=== PATIENT | female | born 1945 | race Caucasian/White ===

== ENCOUNTER 2020-02-14 18:07 | Outpatient (CLI) | payer MEDICARE, SELFPAY ==
--- NOTE | ~2020-02-14 | CT_ITS ---
EXAMINATION: CT chest wo con EXAM DATE: 02/14/2020 18:24 INDICATION: Chronic obstructive pulmonary disease. TECHNIQUE: Spiral CT of the chest without contrast. Axial, coronal and sagittal images were reviewe d. Coronal maximum intensity pixel images of chest reviewed. The dose-length product (DLP) for this examination was 286.27 mGy-cm. The exposure was tailored according to patient size (auto mA exposur e control), and iterative reconstruction (ASIR) was used as additional dose reduction technique. Comp arison is made to prior examination from 05/17/2019. FINDINGS: Right upper lobe elongated nodule is stable in size, main component measuring 1.6 x 0.8 cm . This is consistent with postinfectious residua. There is mild emphysema and hyperinflation. No new or suspicious pulmonary nodules. Left shoulder replacement. There are no pleural or pericardial effus ions. Tracheobronchial tree is patent. There is no mediastinal, hilar or axillary lymphadenopathy . There is no pneumothorax. Heart normal in size. There is mild to moderate coronary arterial c alcification, arterial sclerosis. Upper abdomen is unremarkable. There is moderate thoracic spondy losis without osteoblastic or osteolytic lesions identified. IMPRESSION: 1. Postinfectious residua. 2. Mild emphysema and hyperinflation. Reviewed, dictated and finalized at location A.
== END 2020-02-14 18:08 | disposition home or self-care (01) ==
PROVIDERS: PCP Family Medicine; Visit Provider Nurse Practitioner Family
DX: J44.9 Chronic obstructive pulmonary disease, unspecified (principal)
CPT/HCPCS: 71250

== ENCOUNTER 2020-08-20 11:50 | Outpatient (CLI) | payer MEDICARE, SELFPAY ==
--- NOTE | ~2020-08-20 | MM_ITS ---
EXAMINATION: MM screening [facility] BI w tony HISTORY: Screening mammogram, history of left breast cancer TECHNIQUE: Craniocaudal and mediolateral oblique 3-D tomosynthesis images were obtained and synthetic 2-D images were generated. CAD analysis was submitted and interpreted. COMPARISON: 11/14/2018, 09/02/2017, 08/09/2016 BREAST PARENCHYMAL COMPOSITION: The breasts are almost entirely fatty. FINDINGS: There are stable lumpectomy changes in the upper outer quadrant of the left breast. There i s no evidence of suspicious mass, calcification, or architectural distortion to suggest malignancy in either breast. There has been no suspicious interval change. IMPRESSION: 1. No mammographic evidence of malignancy. 2. Recommend routine screening mammography in one year. BI-RADS Category 2: Benign finding(s). Reviewed, dictated and finalized at location D.
== END 2020-08-20 11:51 | disposition home or self-care (01) ==
PROVIDERS: PCP Physician Assistant; Visit Provider Obstetrics & Gynecology
DX: Z12.31 Encounter for screening mammogram for malignant neoplasm of breast (principal)
CPT/HCPCS: 77063; 77067

== ENCOUNTER 2020-09-24 14:30 | Outpatient (RCR) | payer MEDICARE, SELFPAY ==
[2020-09-11 14:12] VITALS: BMI 36.5
[2020-09-11 14:16] VITALS: BMI 36.5
== END 2020-11-12 14:57 | disposition home or self-care (01) ==
LOC: ANHDMC 14:30
PROVIDERS: PCP Physician Assistant; Visit Provider Physician Assistant
DX: E11.65 Type 2 diabetes mellitus with hyperglycemia (principal); E66.01 Morbid (severe) obesity due to excess calories; Z68.38 Body mass index [BMI] 38.0-38.9, adult; Z71.89 Other specified counseling; Z71.3 Dietary counseling and surveillance
CPT/HCPCS: 97802; G0108; G0109

== ENCOUNTER 2020-12-25 14:06 | Outpatient (RCR) | payer MEDICARE, SELFPAY | END 2020-12-26 12:01 | disposition home or self-care (01) | LOC: ANHDMC 14:06 | PROVIDERS: PCP Family Medicine; Visit Provider Physician Assistant | DX: E11.65 Type 2 diabetes mellitus with hyperglycemia (principal); E66.01 Morbid (severe) obesity due to excess calories; Z68.38 Body mass index [BMI] 38.0-38.9, adult; Z71.89 Other specified counseling | CPT/HCPCS: G0108 ==

== ENCOUNTER 2021-03-31 15:03 | Emergency (ER) | payer MEDICARE, SELFPAY ==
--- NOTE | ~2021-03-31 | XR_ITS ---
EXAMINATION: XR chest 2V EXAM DATE: 03/31/2021 15:29 INDICATION: Cough and shortness of breath. Hx of HTN, breast CA. TECHNIQUE: Frontal and lateral projections of the chest obtained and reviewed. Comparison is made to prior examination from 04/09/2019. FINDINGS: Chronic right pleural blunting. Chronic linear right perihilar scarring. The lungs are oth erwise clear. Cardiomediastinal silhouette is normal. There is no pneumothorax suspected. No sizable pleural effusion. Left shoulder replacement hardware. There is aortic arteriosclerosis. IMPRESSION: 1. No acute cardiac pulmonary findings. Reviewed, dictated and finalized at location A. [employer]PA[employer]
--- NOTE | 2021-03-31 15:07 | ED.URI ---
HPI - URI/Sore Throat General Chief Complaint: Upper Respiratory Infection Stated Complaint: congestion/cough/sob/asthma Time Seen by Provider: 03/31/21 15:07 Source: patient, RN notes reviewed and old records reviewed Mode of arrival: ambulatory Limitations: no limitations History of Present Illness HPI Narrative: 76-year-old female presents to the [facility] with complaints of congestion, cough, shortness of breath and asthma-like feeling. States been going on for several days. Has tried using her nebulizer treatment one time. Denies chest pain or abdominal pain. No fevers. MD elicited complaint: cough Related Data Home Medications Medication Instructions Recorded Confirmed anastrozole 1 mg tablet 1 mg PO DAILY 06/07/19 11/26/20 aspirin 81 mg tablet,delayed 81 mg PO DAILY 05/14/20 11/26/20 release calcium pantothenate 500 mg tablet mg PO 05/14/20 11/26/20 multivit with 1 tablet PO DAILY 05/14/20 11/26/20 oylsxnut-idbh-BH-lutein 8 mg iron-400 mcg-300 mcg tablet ipratropium 0.5 mg-albuterol 3 mg 3 ml INHALATION Q6H PRN 11/26/20 11/26/20 (2.5 mg base)/3 mL nebulization soln Allergies Allergy/AdvReac Type Severity Reaction Status Date / Time No Known Allergies Allergy Unknown Verified 11/26/20 14:15 Review of Systems Review of Systems: All systems reviewed & are unremarkable except as noted in HPI and below Constitutional: Constitutional: Reports no additional constitutional complaints, Denies chills and Denies fever(s) Eyes: Eyes: Reports no additional eye complaints ENT: Reports system reviewed and no additional complaints, except as documented Cardiovascular: Cardiovascular: Reports no additional cardiovascular complaints and Denies chest pain Respiratory: Respiratory: Reports as per HPI, Reports cough, Reports dyspnea and Reports wheezing Gastrointestinal: Gastrointestinal: Reports no additional gastrointestinal complaints, Denies abdominal pain, Denies nausea and Denies vomiting Musculoskeletal: Musculoskeletal: Reports no additional musculoskeletal complaints Integumentary/Breasts: Skin/Breast: Reports system reviewed and no additional complaints, except as docu Neurologic: Reports system reviewed and no additional complaints, except as documented Psychiatric: Psychiatric: Reports no additional psychiatric complaints Allergic/Immunologic: Allergic/Immunologic: Reports no additional allergic/immunologic complaints PMFSH Past Medical History Medical History Arthritis Arthritis of knee, right Benign hypertension Breast cancer Chondromalacia of right patellofemoral joint Class 2 obesity with body mass index (BMI) of 38.0 to 38.9 in adult Diabetes Dysuria (08/28/18) Essential (primary) hypertension History of breast cancer History of vaginal delivery x 2 Hyperlipidemia Obstructive sleep apnea Osteoporosis Type 2 diabetes mellitus Urinary frequency Vertigo Wears glasses Surgical History Surgical History History of lung surgery 2014-Dicortication Dr. Salmon History of rotator cuff surgery History of tubal ligation Status post right breast lumpectomy Family History Family History Father Diabetes mellitus Sibling Diabetes mellitus Mother Hypertension Patient's mother is Other Family history of arthritis Social History Social History Smoking status: Never smoker Second hand tobacco smoke exposure: No Alcohol intake: current Drinks per week: 1 Alcohol use details: wine Substance use: never Substance use type: does not use Gender identity (if verbalized by the patient): Female Spiritual care concerns: No Comments At the time of my signature, I reviewed and agree with the nursing past medical, surgical, social, and family history
[2021-03-31 15:13] VITALS: BP 166/87; PULSE 92; RESP 16; TEMP 35.7; O2SAT 99
[2021-03-31] MEDS: ALBUTEROL SULFATE NEB 2.5 MG/3 ML INH INHALATION (15:25)
[2021-03-31] MEDS: IPRATROPIUM BR 0.02% INH SOLN 0.5 MG/2.5 ML VIAL INHALATION (15:25)
[2021-03-31 15:42] VITALS: PULSE 92; RESP 24; O2SAT 100
== END 2021-03-31 16:00 | disposition home or self-care (01) ==
PROVIDERS: Emergency Provider Nurse Practitioner; PCP Family Medicine
DX: J20.9 Acute bronchitis, unspecified (principal); M17.11 Unilateral primary osteoarthritis, right knee; I10 Essential (primary) hypertension; Z85.3 Personal history of malignant neoplasm of breast; E11.9 Type 2 diabetes mellitus without complications; E78.5 Hyperlipidemia, unspecified; M81.0 Age-related osteoporosis without current pathological fracture
CPT/HCPCS: 71046; 94640; 99213; G0463

== ENCOUNTER 2021-10-08 14:53 | Outpatient (CLI) | payer MEDICARE, SELFPAY ==
--- NOTE | ~2021-10-08 | MM_ITS ---
EXAMINATION: MM screening [facility] BI w tony HISTORY: Screening mammogram, history of left breast cancer TECHNIQUE: Craniocaudal and mediolateral oblique 3-D tomosynthesis images were obtained and synthetic 2-D images were generated. CAD analysis was submitted and interpreted. COMPARISON: 08/20/2020, 11/15/2018, 09/02/2017 BREAST PARENCHYMAL COMPOSITION: There are scattered areas of fibroglandular density. FINDINGS: Stable lumpectomy changes are again noted in the upper outer quadrant of the left breast. T here is no suspicious mass, calcification, or architectural distortion to suggest malignancy in eithe r breast. There has been no suspicious interval change. IMPRESSION: 1. No mammographic evidence of malignancy. 2. Recommend routine screening mammography in one year. BI-RADS Category 2: Benign finding(s). Reviewed, dictated and finalized at location A.
== END 2021-10-08 14:54 | disposition home or self-care (01) ==
PROVIDERS: PCP Family Medicine; Visit Provider Internal Medicine
DX: Z12.31 Encounter for screening mammogram for malignant neoplasm of breast (principal)
CPT/HCPCS: 77063; 77067

== ENCOUNTER 2022-02-12 09:16 | Outpatient (CLI) | payer MEDICARE, SELFPAY ==
--- NOTE | ~2022-02-12 | XR_ITS ---
XR chest 2V 02/12/2022 09:38 Indication: Left-sided chest pain Procedure: 2 view chest Comparison: Comparison to multiple prior studies sequentially, with oldest reviewed study dated 09/14. Findings: The there is right perihilar scarring. There is blunting of the right lateral costophrenic recess which is chronic which may represent a small effusion versus pleural thickening. Left lung yana ar. There is a left shoulder arthroplasty. Impression: 1: Small right pleural effusion versus pleural thickening. Reviewed, dictated and finalized at location A. Impression: 1: Small right pleural effusion versus pleural thickening.
--- NOTE | ~2022-02-12 | NM_ITS ---
EXAMINATION: NM marsha stress w perfusion DATE: 02/12/2022 12:36 INDICATION: Chest pain TECHNIQUE: Rest images were obtained following intravenous administration of 11 mCi Tc99m tetrofosmin (Myoview). The patient was infused intravenously with Lexiscan (Regadenoson). Then, 33 mCi Tc99m tet rofosmin (Myoview) was administered intravenously, and stress images were obtained in supine position . Additional post stress images were obtained in prone position. Data was reconstructed into short ax is and horizontal and vertical long axis SPECT images. Gated SPECT images were also obtained. COMPARISON: None. FINDINGS: There is some diaphragmatic attenuation artifact along the inferior wall on the supine imaging which normalizes with prone imaging. There is no definite reversible or fixed perfusion abnormality to sugg est ischemia or infarction. There is normal left ventricular chamber size, wall motion and ejection fraction. Left ventricular ejection fraction measures 70%. IMPRESSION: 1. Normal myocardial perfusion at rest and during stress. 2. Left ventricular ejection fraction measuring 70%. Reviewed, dictated and finalized at location B.
--- NOTE | 2022-02-12 08:52 | EST_ITS ---
Patient Info Name: Khushbu Cunningham Age: 76 years : 1945 Gender: Female Ht: 63 in Wt: 205 lbs BSA: 2.08 m2 HR: 75 bpm BP: 157 / 67 mmHg Heart Rhythm: Sinus Rhythm Exam Date: 02/12/2022 10:52 AM Exam Location: [facility] Stress Patient Status: Outpatient Admit Date: 02/12/2022 Staff Ordering Physician: Sunday Yang APRN Attending Provider: Sunday Yang APRN Referring Physician: Tracee Dimas; Exercise Technologist: Reanna Zhou CT Nurse: SANJAY MAYNARD Exam Type: CA stress marsha w NM Study Info Indications R06.02 - Shortness of breath A regadenoson stress test was performed. Summary 1. Sinus rhythm with borderline leftward axis deviation. 2. No ST or T-wave abnormalities noted following Lexiscan injection. 3. Clinically and electrocardiographically unremarkable Lexiscan stress test. 4. Myocardial perfusion imaging study to be reported by Radiology. Protocol: Lexiscan Stress ECG Details Stage: REST Duration (min): 0 min : 55 sec HR (bpm): 74 SBP (mmHg): 157 DBP (mmHg): 67 Stage: REST Duration (min): 7 min : 53 sec HR (bpm): 72 SBP (mmHg): 157 DBP (mmHg): 67 Stage: STAGE 1 Duration (min): 0 min : 59 sec HR (bpm): 90 SBP (mmHg): 153 DBP (mmHg): 69 Stage: RECOVERY Duration (min): 1 min : 0 sec HR (bpm): 89 SBP (mmHg): 153 DBP (mmHg): 69 Stage: RECOVERY Duration (min): 2 min : 0 sec HR (bpm): 84 SBP (mmHg): 153 DBP (mmHg): 69 Stage: RECOVERY Duration (min): 3 min : 0 sec HR (bpm): 83 SBP (mmHg): 171 DBP (mmHg): 69 Stage: RECOVERY Duration (min): 3 min : 43 sec HR (bpm): 81 SBP (mmHg): 171 DBP (mmHg): 69 Rest HR: 72 bpm Peak HR: 94 bpm Rest Sys BP: 157 mmHg Peak Sys BP: 171 mmHg Max Pred HR: 143 bpm % Max Pred HR: 66 % Target HR: 122 bpm Max RPP: 16,074 bpm*mmHg Total Time: 1 min : 0 sec Rest Roberts BP: 67 mmHg Peak Roberts BP: 69 mmHg Total Dose: 0.4 mg Resting ECG Sinus rhythm with borderline leftward axis deviation. Stress ECG No ST or T-wave abnormalities noted following Lexiscan injection. Report Signatures
== END 2022-02-12 09:17 | disposition home or self-care (01) ==
LOC: ANHCARD 09:19
PROVIDERS: PCP Family Medicine; Referring Provider Physician Assistant Medical; Visit Provider Nurse Practitioner Family
DX: R06.02 Shortness of breath (principal); J90 Pleural effusion, not elsewhere classified; R07.89 Other chest pain
CPT/HCPCS: 71046; 78452; 93017; A9502; J0280; J2785

== ENCOUNTER 2022-06-02 09:49 | Outpatient (CLI) | payer MEDICARE, SELFPAY ==
--- NOTE | ~2022-06-02 | DEXA_ITS ---
Bone Density Report Name: KARINE GONZALEZ Age: 77 Sex: Female Ethnicity: White Date of : 1945 Indication: postmenopausal; screening for osteoporosis; height loss; cancer; secondary osteoporosis; Referring Provider: LEEANNE JORDAN Study: Bone densitometry was performed. Exam Date: June 02, 2022 Accession number: [id number] Bone Density: Region BMD T-score Z-score Classification AP Spine(L2, L3, L4) 1.221 1.3 4.0 Normal Femoral Neck (Right) 0.737 -1.0 1.2 Normal Total Hip (Right) 1.025 0.7 2.6 Normal World Health Organization criteria for BMD impression classify patients as: Normal (T-score at or above -1.0), Osteopenia (T-score between -1.0 and -2.5), or Osteoporosis (T-score at or below -2.5). 10-year Fracture Risk: FRAX not reported because: All T-scores for Spine Total, Hip Total, Femoral Neck at or above -1.0 Clinical Information Provided by Patient: Has secondary osteoporosis Has used the following medications: Vitamin D, Calcium Has the following medical conditions: Cancer Patient maximum height was 64 Menopause Age: 53 Does not regularly consume dairy products Drinks caffeinated beverages Onset of menses at age 13 Number of children 2 Impression: The patient has normal bone mass. Discussion: BONE DENSITY IS ABOVE THE MINIMUM DESIRABLE LEVEL AT ALL SKELETAL SITES TESTED. This patient?s bone mineral density is above the minimum desirable level (T-score -1.0 or better) at all sites measured. The patient should follow a healthful lifestyle (good nutrition with adequate calcium and vitamin D, and appropriate weight-bearing exercise). Follow-Up: Consider repeating this study in 5 years or sooner if there is some new clinical indication. Reported by: BRANDY on 06/02/2022 11:17:00 AM. Reviewed, dictated and finalized at location AGabrielle REYES
== END 2022-06-02 09:50 | disposition home or self-care (01) ==
LOC: ANHIMG 09:50
PROVIDERS: PCP Family Medicine; Visit Provider Obstetrics & Gynecology
DX: Z78.0 Asymptomatic menopausal state (principal)
CPT/HCPCS: 77080

== ENCOUNTER 2023-03-29 10:17 | Emergency (ER) | payer MEDICARE, SELFPAY ==
--- NOTE | ~2023-03-29 | XR_ITS ---
Clinical Indication: Congestion PA and lateral views of the chest: Comparison: 02/12/2022 Findings: Possible minimal right pleural effusion. Lungs are otherwise clear. Cardiomediastinal silh ouette is within normal limits. Left shoulder arthroplasty unchanged. Impression: Possible minimal right pleural effusion. Reviewed, dictated and finalized at [facility]. MAKER Impression: Possible minimal right pleural effusion.
--- NOTE | 2023-03-29 10:30 | ED.URI ---
HPI - URI/Sore Throat General Chief Complaint: Upper Respiratory Infection Stated Complaint: SOB/CONGESTION/NOT SLEEPING Time Seen by Provider: 03/29/23 10:33 Source: patient Mode of arrival: ambulatory Limitations: no limitations History of Present Illness HPI Narrative: 78-year-old female with hx COPD/asthma presented for c/o shortness of breath for 3 days with nasal congestion. Also reports occasional wheezing which she says is unusual for her. Not sleeping well due to the sinus congestion and use of cpap. She denies cough, chest pain, palpitations, nausea vomiting, diarrhea, fevers or chills. Denies dizziness worse from baseline. Takes AirDuo, and uses DuoNebs occasionally but has not used them since symptoms started. Follows with pulm. Scheduled with pcp in 2 days. Related Data Home Medications Medication Instructions Recorded Confirmed aspirin 81 mg tablet,delayed 81 mg PO DAILY 05/14/20 03/04/23 release (Adult Aspirin Regimen) calcium pantothenate 500 mg tablet mg PO 05/14/20 03/04/23 ghvfzaqc-pjsb-pgrj 8 mg-folic 400 1 tablet PO DAILY 05/14/20 03/04/23 mcg-K 50 mcg-lutein 300 mcg tablet (Centrum Silver Women) ipratropium 0.5 mg-albuterol 3 mg 3 ml inhalation Q6H PRN 11/26/20 03/04/23 (2.5 mg base)/3 mL nebulization soln insulin human U-100 NPH-regulr 30 unit subcut BID 07/22/21 03/04/23 70-30 mix 100 unit/mL subcutaneous susp (Novolin 70/30 U-100 Insulin) Allergies Allergy/AdvReac Type Severity Reaction Status Date / Time No Known Allergies Allergy Unknown Verified 03/29/23 10:28 Review of Systems Review of Systems: CONSTITUTIONAL: Denies body aches, fever, chills, or sweats. EYES: Denies visual changes, redness, or discharge. ENT: Denies rhinorrhea, congestion, sore throat, or otalgia. CARDIOVASCULAR: Denies chest pain, palpitations, or edema. RESPIRATORY: Reports sob, wheezing. GASTROINTESTINAL: Denies abdominal pain, nausea, vomiting, or diarrhea. GENITOURINARY: Denies dysuria or hematuria. SKIN: Denies rash, itching, or wounds. MUSCULOSKELETAL: Denies back pain, joint pain, or myalgia. NEUROLOGIC: Denies headache, numbness, tingling, or weakness. All systems reviewed & are unremarkable except as noted in HPI and below PMFSH Past Medical History Medical History Arthritis Asthma Benign hypertension Breast cancer Chest pain Chondromalacia of right patellofemoral joint Class 2 obesity with body mass index (BMI) of 38.0 to 38.9 in adult Colon cancer screening Cologuard negative, Fall 2020, done with PROBATION OFFICER ([facility]) COPD (chronic obstructive pulmonary disease) COPD exacerbation Diabetes Dysuria (08/28/18) Essential (primary) hypertension History of breast cancer History of vaginal delivery x 2 Left knee DJD Obstructive sleep apnea Osteoporosis Patellofemoral arthritis Type 2 diabetes mellitus Urinary frequency Vertigo Wears glasses Surgical History Surgical History History of hip surgery L hip surgery History of lung surgery 2013-Dicortication Dr. 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 POA: BrotherHong. Has living will. Smoking status: Never smoker Second hand tobacco smoke exposure: No Alcohol intake: current Drinks per week: 1 Alcohol use details: wine Substance use: never Substance use type: does not use Lack of Transportation: No Lack of Food: Never True Current Housing: I Have
[2023-03-29 10:35] VITALS: BP 156/78; PULSE 76; RESP 16; TEMP 35.8; O2SAT 100
== END 2023-03-29 11:12 | disposition home or self-care (01) ==
PROVIDERS: Emergency Provider Nurse Practitioner Family; PCP Family Medicine
DX: B34.9 Viral infection, unspecified (principal); Z20.822 Contact with and (suspected) exposure to COVID-19; M19.90 Unspecified osteoarthritis, unspecified site; I10 Essential (primary) hypertension; J44.9 Chronic obstructive pulmonary disease, unspecified; E11.9 Type 2 diabetes mellitus without complications; M17.12 Unilateral primary osteoarthritis, left knee; M81.0 Age-related osteoporosis without current pathological fracture; Z85.3 Personal history of malignant neoplasm of breast; Z79.82 Long term (current) use of aspirin
CPT/HCPCS: 71046; 87426; 87804; 99213; C9803; G0463

== ENCOUNTER 2023-05-30 09:02 | Outpatient (CLI) | payer MEDICARE, SELFPAY | END 2023-05-30 09:03 | disposition home or self-care (01) | LOC: ANHAUDIO 09:03 | PROVIDERS: PCP Family Medicine; Visit Provider Otolaryngology | DX: H90.3 Sensorineural hearing loss, bilateral (principal) | CPT/HCPCS: 92557; 92567 ==

== ENCOUNTER 2023-07-01 14:09 | Outpatient (CLI) | payer MEDICARE, SELFPAY ==
[2023-07-01 15:20] LABS: Influenza A QL RT-PCR Negative (Negative); Influenza B QL RT-PCR Negative (Negative); RSV RNA, RT-PCR Negative (Negative); SARS-CoV-2 RNA PCR Negative (Negative)
== END 2023-07-01 14:10 | disposition home or self-care (01) ==
LOC: ANHLAB 14:11
PROVIDERS: PCP Family Medicine; Visit Provider Physician Assistant Medical
DX: R05.9 Cough, unspecified (principal); J06.9 Acute upper respiratory infection, unspecified; Z20.822 Contact with and (suspected) exposure to COVID-19
CPT/HCPCS: 87637

== ENCOUNTER 2023-09-22 14:32 | Outpatient (CLI) | payer MEDICARE, SELFPAY ==
[2023-09-22 16:02] LABS: Influenza A QL RT-PCR Negative (Negative); Influenza B QL RT-PCR Negative (Negative); RSV RNA, RT-PCR Negative (Negative); SARS-CoV-2 RNA PCR Positive (Negative)
== END 2023-09-22 14:33 | disposition home or self-care (01) ==
LOC: ANHLAB 14:34
PROVIDERS: PCP Family Medicine; Visit Provider Physician Assistant Medical
DX: R06.02 Shortness of breath (principal); Z20.822 Contact with and (suspected) exposure to COVID-19
CPT/HCPCS: 87637

== ENCOUNTER 2023-12-01 15:16 | Outpatient (CLI) | payer MEDICARE, SELFPAY ==
--- NOTE | ~2023-12-01 | MM_ITS ---
EXAMINATION: MM screening [facility] BI w tony HISTORY: Screening TECHNIQUE: Craniocaudal and mediolateral oblique 3-D tomosynthesis images were obtained and synthetic 2-D images were generated. CAD analysis was submitted and interpreted. COMPARISON: Comparison to multiple prior studies sequentially, with oldest reviewed study dated 10/2015. BREAST PARENCHYMAL COMPOSITION: Not dense: There are scattered areas of fibroglandular density. FINDINGS: There is no evidence of suspicious mass, calcification, or architectural distortion to sugg est malignancy in either breast. There has been no suspicious interval change. IMPRESSION: 1. No mammographic evidence of malignancy. 2. Recommend routine screening mammography in one year. BI-RADS Category 1: Negative Reviewed, dictated and finalized at location B.
== END 2023-12-01 15:17 | disposition home or self-care (01) ==
LOC: ANHIMG 15:18
PROVIDERS: PCP Family Medicine; Visit Provider Obstetrics & Gynecology
DX: Z12.31 Encounter for screening mammogram for malignant neoplasm of breast (principal)
CPT/HCPCS: 77063; 77067

== ENCOUNTER 2024-05-23 15:12 | Emergency (ER) | payer MEDICARE, SELFPAY ==
--- NOTE | ~2024-05-23 | XR_ITS ---
EXAMINATION: [id number] DATE: 05/23/2024 15:51 INDICATION: Left rib pain. TECHNIQUE: A frontal view of the chest and 2 views on 3 radiographs of the left ribs were obtained. 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 There is no pneumonia , pleural effusion, or pneumothorax. The heart size is normal. There is a total left shoulder arthrop lasty. There are surgical clips in left breast. IMPRESSION: 1. No rib fracture. Reviewed, dictated and finalized at location B. N SERVICE TECHNICIAN IMPRESSION: 1. No rib fracture.
[2024-05-23 15:25] VITALS: BP 152/98; PULSE 87; RESP 16; TEMP 36.3; O2SAT 100
--- NOTE | 2024-05-23 16:02 | ED.GENADULT ---
HPI - General Adult General Chief complaint: Chest Pain Stated complaint: Left rib pain Time Seen by Provider: 05/23/24 15:25 Source: patient and RN notes reviewed Mode of arrival: ambulatory Limitations: no limitations History of Present Illness HPI narrative: Patient presents today complaining of a left anterior rib pain under the breast x3 days. Patient states she has had this discomfort intermittently over the past year. When the pain presents itself it is usually present for approximately 1 minute before resolving. She will occasionally take some Tylenol for the pain which does not help much. Occasionally the pain is elicited with movement. Her pain was present approximately 30 minutes prior to arrival, but has since resolved. She was told by her PCP to present at Urgent Care she had the pain so she can get an x-ray when it was present. Denies shortness of breath or any additional symptoms. Since onset 1 year ago she has been worked for cardiac etiology and has seen her oncologist and has been worked up for, ?bone cancer . All of her previous workups have been negative. Related Data Home Medications ?Medication ?Instructions ?Recorded ?Confirmed ?Last Taken ?Type aspirin 81 mg tablet,delayed 81 mg PO DAILY 05/14/20 05/23/24 Unknown History release (Adult Aspirin Regimen) calcium pantothenate 500 mg tablet mg PO 05/14/20 05/16/24 Unknown History vhftfxlb-prcr-[id number] 8 mg-folic 400 1 tablet PO DAILY 05/14/20 05/23/24 Unknown History mcg-K 50 mcg-lutein 300 mcg tablet (Centrum Silver Women) vibegron 75 mg tablet (Gemtesa) 75 mg PO DAILY 07/20/23 05/23/24 Unknown History cholecalciferol (vitamin D3) 25 2,000 unit PO ONCE 05/23/24 05/23/24 Unknown History mcg (1,000 unit) chewable tablet (Vitamin D3) Allergies Allergy/AdvReac Type Severity Reaction Status Date / Time No Known Allergies Allergy Unknown Verified 05/23/24 15:19 Review of Systems Review of Systems: CONSTITUTIONAL: Denies body aches, fever, chills, or sweats. EYES: Denies visual changes, redness, or discharge. ENT: Denies rhinorrhea, congestion, sore throat, or otalgia. CARDIOVASCULAR: Denies chest pain, palpitations, or edema. RESPIRATORY: Denies cough or dyspnea.+ rib pain GASTROINTESTINAL: Denies abdominal pain, nausea, vomiting, or diarrhea. GENITOURINARY: Denies dysuria or hematuria. SKIN: Denies rash, itching, or wounds. MUSCULOSKELETAL: Denies back pain, joint pain, or myalgia. NEUROLOGIC: Denies headache, numbness, tingling, or weakness. PSYCH: Denies depression or anxiety. [facility] Past Medical History Medical History Patellofemoral arthritis Left knee DJD Chest pain Colon cancer screening Cologuard negative, Fall 2020, done with [employer] ([facility]) COPD exacerbation Class 2 obesity with body mass index (BMI) of 38.0 to 38.9 in adult Chondromalacia of right patellofemoral joint Arthritis Osteoporosis Urinary frequency Wears glasses Vertigo Obstructive sleep apnea Essential (primary) hypertension Type 2 diabetes mellitus History of breast cancer Diabetes Breast cancer History of vaginal delivery x 2 Asthma COPD (chronic obstructive pulmonary disease) Benign hypertension Dysuria (08/28/18) Surgical History Surgical History History of hip surgery L hip surgery History of lung surgery 2014-Dicortication Dr. 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 POA: Brother, Hong. Has living will. Smoking status: Never smoker Second hand tobacco smoke exposure: No Alcohol intake: current Drinks per week: 1 Alcohol use details: wine Substance use: never Substance use type: does not use Lack of Transportation: No Lack of Food: Never True Current Housing: I Have Housing Concerned About Future Housing: No Difficulty Paying Gas/Electric Bills: No Difficulty Paying for Meds: No Currently Unemployed: No Education: Associate Degree Difficulty w/ Childcare or Family Care: No Living arrangements: with family Gender identity (if verbalized by the patient): Female Sexual Orientation (if Verbalized by the Patient): Straight or Heterosexual Spiritual care concerns: No Agree to blood products: Yes Comments At time of signature, I have reviewed and agree with nursing past medical, surgical, social and family history unless otherwise noted. Please see nursing chart for further information. There is no relevant family history pertinent to the presenting complaint Exam Narrative: GENERAL: Well-appearing, well-nourished, and in no acute distress. HEAD: Normocephalic, atraumatic. EYES: EOMI. No redness or drainage. Conjunctivae normal. ENT: Mucous membranes pink and moist. NECK: Normal AROM. CHEST: No respiratory distress. Clear to auscultation. Mild tenderness of the left a anterior ribs under the breast. No crepitus, step-off, or any other abnormalities noted. HEART: Regular rate and rhythm. No murmur appreciated. EXTREMITIES: Normal range of motion. No edema. SKIN: Warm, dry, no rash. Capillary refill normal. Normal skin turgor. NEURO: No focal deficits. Alert and oriented x3. Gait steady. PSYCH: Normal affect. No signs of depression or anxiety. Course Course Level of Care: Express Care Visit Vital Signs Vital signs: Vital Signs Temperature 97.4 F L 05/23/24 15:25 Pulse Rate 87 05/23/24 15:25 Respiratory Rate 16 05/23/24 15:25 Blood Pressure 152/98 H 05/23/24 15:25 Pulse Oximetry 100 05/23/24 15:25 Temperature 97.4 F L 05/23/24 15:25 Pulse Rate 87 05/23/24 15:25 Respiratory Rate 16 05/23/24 15:25 Blood Pressure 152/98 H 05/23/24 15:25 Pulse Oximetry 100 05/23/24 15:25 Reviewed Medical Decision Making MDM Narrative Medical decision making narrative: X-ray is negative. Patient states she will follow-up with her PCP on had they would like to proceed. Differential Diagnosis Differential Diagnosis: Rib fracture, rib strain Vital Signs Vital Signs: Vital Signs Temperature 97.4 F L 05/23/24 15:25 Pulse Rate 87 05/23/24 15:25 Respiratory Rate 16 05/23/24 15:25 Blood Pressure 152/98 H 05/23/24 15:25 Pulse Oximetry 100 05/23/24 15:25 Temperature 97.4 F L 05/23/24 15:25 Pulse Rate 87 05/23/24 15:25 Respiratory Rate 16 05/23/24 15:25 Blood Pressure 152/98 H 05/23/24 15:25 Pulse Oximetry 100 05/23/24 15:25 Imaging Data Radiologist's impression: ITS Impressions Ribs w/Chest X-Ray 05/23/24 15:54 IMPRESSION: 1. No rib fracture. Critical Care Time Critical Care Time Critical Care Time: No Discharge Plan Discharge Clinical Impression: Chest wall pain Patient Disposition: Home, Self-Care Condition: Stable Instructions: Chest Wall Pain (ED) Additional Instructions: Your x-ray is negative for anything concerning. Please follow-up with your PCP regarding your persistent pain. Your blood pressure was elevated above 120/80 today at Urgent Care. This puts you above the threshold for follow up. Please schedule a followup visit with your personal physician as soon as possible, for further evaluation and treatment. Even blood pressure exceeding 120/80 may indicate pre-hypertension. Patient Language: [place] Prescriptions: No Action cholecalciferol (vitamin D3) [Vitamin D3] 25 mcg (1,000 unit) tablet,chewable 2,000 unit PO ONCE fluticasone propion-salmeterol [Wixela Inhub] 250-50 mcg/dose blister with device 1 inh inhalation BID 30 Days Qty: 60 11RF Rx Instructions: rinse and spit albuterol sulfate 90 mcg/actuation HFA aerosol inhaler 1 - 2 inh inhalation Q4-6H PRN (Reason: shortness of breath or wheezing) Qty: 8.5 2RF (DME) peak flow meter Device See Rx Instructions .ROUTE .MEDSUPPLY Qty: 1 0RF Rx Instructions: As directed azelastine 137 mcg (0.1 %) spray,non-aerosol 1 spray intranasal Q12H PRN (Reason: nasal congestion and drainage) Qty: 30 2RF Rx Instructions: administer into each nostril aspirin [Adult Aspirin Regimen] 81 mg tablet,delayed release (DR/EC) 81 mg PO DAILY calcium pantothenate 500 mg tablet PO Centrum Silver Women 8 mg iron-400 mcg-300 mcg tablet 1 tablet PO DAILY Gemtesa 75 mg tablet 75 mg PO DAILY (DME) lancets [OneTouch Delica Lancets] 33 gauge misc See Rx Instructions .ROUTE .MEDSUPPLY Qty: 100 3RF Rx Instructions: Use to check blood sugar daily while fasting (DME) blood-glucose meter [Accu-Chek Guide Glucose Meter] [facility] See Rx Instructions .Route Qty: 1 0RF Rx Instructions: As directed daily (DME) insulin syringe-needle U-100 0.3 mL 30 gauge x 5/16 syringe See Rx Instructions .ROUTE .MEDSUPPLY Qty: 100 3RF Rx Instructions: Daily as directed (DME) Accu-Chek Guide test strips Strip See Rx Instructions .Route Qty: 100 5RF Rx Instructions: use As directed to check glucose TID fluticasone propionate 50 mcg/actuation spray,suspension 1 spray intranasal Q12H Qty: 16 0RF Rx Instructions: administer into each nostril (DME) insulin syr/ndl U100 half yadira 0.3 mL 31 gauge x 5/16 syringe See Rx Instructions .Route Qty: 200 3RF Rx Instructions: As directed bid pantoprazole 40 mg tablet,delayed release (DR/EC) 40 mg PO QAM Qty: 90 3RF meclizine 25 mg tablet 25 mg PO TID PRN (Reason: dizziness or vertigo) Qty: 30 0RF ipratropium-albuterol 0.5 mg-3 mg(2.5 mg base)/3 mL solution for nebulization 3 ml inhalation Q6H PRN (Reason: shortness of breath or wheezing) Qty: 180 2RF Novolin 70/30 U-100 Insulin 100 unit/mL (70-30) suspension 30 unit subcut BID Qty: 20 12RF Rx Instructions: Take before breakfast and supper. Uses Reli-on brand. losartan 100 mg tablet 100 mg PO DAILY Qty: 90 3RF hydrochlorothiazide 12.5 mg tablet 25 mg PO DAILY Qty: 180 1RF montelukast 10 mg tablet See Rx Instructions .ROUTE .COMPLEX Qty: 90 1RF Dose Instruction: Take 1 tablet by mouth once daily Rx Instructions: Take 1 tablet by mouth once daily simvastatin 40 mg tablet 40 mg PO DAILY Qty: 90 1RF metformin 1,000 mg tablet 1,000 mg PO BID Qty: 180 3RF Rx Instructions: TAKE 1 TABLET BY MOUTH TWICE DAILY WITH BREAKFAST AND WITH EVENING MEAL metoprolol succinate 25 mg tablet extended release 24 hr 25 mg PO DAILY Qty: 30 6RF levothyroxine 125 mcg tablet 125 mcg PO DAILY Qty: 90 1RF Follow-up/Referrals: Emy Jones MD [Primary Care Provider] - Time of Disposition: 16:09
== END 2024-05-23 16:12 | disposition home or self-care (01) ==
PROVIDERS: Emergency Provider Nurse Practitioner; PCP Family Medicine
DX: R07.89 Other chest pain (principal); I10 Essential (primary) hypertension; E11.9 Type 2 diabetes mellitus without complications; J44.9 Chronic obstructive pulmonary disease, unspecified; M81.0 Age-related osteoporosis without current pathological fracture; M17.12 Unilateral primary osteoarthritis, left knee; Z85.3 Personal history of malignant neoplasm of breast; Z90.11 Acquired absence of right breast and nipple; E66.9 Obesity, unspecified; Z68.35 Body mass index [BMI] 35.0-35.9, adult; Z79.82 Long term (current) use of aspirin
CPT/HCPCS: 71101; 99213; G0463

== ENCOUNTER 2024-05-30 15:24 | Emergency (ER) | payer MEDICARE, SELFPAY ==
--- NOTE | 2024-05-30 15:28 | ED_ITS ---
HPI - URI/Sore Throat General Chief Complaint: Upper Respiratory Infection Stated Complaint: TIRED/RUNNY NOSE/WANTS COVID TEST Time Seen by Provider: 05/30/24 15:45 Source: patient Mode of arrival: ambulatory Limitations: no limitations History of Present Illness HPI Narrative: MARIO is an 79-year-old female patient presenting to the clinic today with complaints of fatigue and runny nose for the past 1-2 days. She denies any shortness of breath or chest pain. Denies any fevers, chills, or body aches. Is concerned that she may have COVID. She works as a volunteer at the hospital. MD elicited complaint: sore throat and nasal congestion Related Data Home Medications ?Medication ?Instructions ?Recorded ?Confirmed ?Last Taken ?Type aspirin 81 mg tablet,delayed 81 mg PO DAILY 05/14/20 05/23/24 Unknown History release (Adult Aspirin Regimen) calcium pantothenate 500 mg tablet mg PO 05/14/20 05/16/24 Unknown History mhztgcld-rbgl-xrnj 8 mg-folic 400 1 tablet PO DAILY 05/14/20 05/23/24 Unknown History mcg-K 50 mcg-lutein 300 mcg tablet (Centrum Silver Women) vibegron 75 mg tablet (Gemtesa) 75 mg PO DAILY 07/20/23 05/23/24 Unknown History cholecalciferol (vitamin D3) 25 2,000 unit PO ONCE 05/23/24 05/23/24 Unknown History mcg (1,000 unit) chewable tablet (Vitamin D3) Allergies Allergy/AdvReac Type Severity Reaction Status Date / Time No Known Allergies Allergy Unknown Verified 05/23/24 15:19 Review of Systems Review of Systems: Pertinent positives per HPI. Patient denies any fever, chills, rash, headache, visual changes, dizziness, shortness of breath, chest pain, palpitations, nausea, vomiting, diarrhea, constipation, abdominal pain, or any urinary issues. [facility] Past Medical History Medical History Patellofemoral arthritis Left knee DJD Chest pain Colon cancer screening Cologuard negative, Fall 2020, done with [employer] ([facility]) COPD exacerbation Class 2 obesity with body mass index (BMI) of 38.0 to 38.9 in adult Chondromalacia of right patellofemoral joint Arthritis Osteoporosis Urinary frequency Wears glasses Vertigo Obstructive sleep apnea Essential (primary) hypertension Type 2 diabetes mellitus History of breast cancer Diabetes Breast cancer History of vaginal delivery x 2 Asthma COPD (chronic obstructive pulmonary disease) Benign hypertension Dysuria (08/28/18) Surgical History Surgical History History of hip surgery L hip surgery History of lung surgery 2014-Dicortication Dr. 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 POA: BrotherHong. Has living will. Smoking status: Never smoker Second hand tobacco smoke exposure: No Alcohol intake: current Drinks per week: 1 Alcohol use details: wine Substance use: never Substance use type: does not use Lack of Transportation: No Lack of Food: Never True Current Housing: I Have Housing Concerned About Future Housing: No Difficulty Paying Gas/Electric Bills: No Difficulty Paying for Meds: No Currently Unemployed: No Education: Associate Degree Difficulty w/ Childcare or Family Care: No Living arrangements: with family Gender identity (if verbalized by the patient): Female Sexual Orientation (if Verbalized by the Patient): Straight or Heterosexual Spiritual care concerns: No Agree to blood products: Yes Comments At the time of my signature, I reviewed and agree with the nursing past medical, surgical, social, and family history. There is no relevant family history pertinent to the patient complaint. Exam Narrative: General: Well-developed, well nourished, in no apparent distress Head: Normocephalic, atraumatic Eyes: Pupils equally round and reactive to light bilaterally, EOM intact, sclera and conjunctive clear, no discharge, lids normal Ears: TMs intact and clear, ear canals clear, no drainage, grossly hearing normal. Nose: Nares patent, clear discharge, no inflammation, no sinus tenderness. Mouth: Oral pharynx without lesions or masses, good dentition, MMM. Neck: Supple, trachea midline, no enlargement of anterior or posterior cervical nodes, no thyroid masses or goiter palpable. Cardio: Regular rate and rhythm, s1 and s2 normal, no murmur appreciated. Resp: Clear to auscultation bilaterally, no rhonchi, rales, wheezing or rubs Course Course Emergency Course: Portions of this record may have been created with voice recognition software. Level of Care: Express Care Visit Vital Signs Vital signs: Vital Signs Temperature 35.8 C L 05/30/24 15:43 Pulse Rate 87 05/30/24 15:43 Respiratory Rate 16 05/30/24 15:43 Blood Pressure 142/81 H 05/30/24 15:43 Pulse Oximetry 100 05/30/24 15:43 Temperature 35.8 C L 05/30/24 15:43 Pulse Rate 87 05/30/24 15:43 Respiratory Rate 16 05/30/24 15:43 Blood Pressure 142/81 H 05/30/24 15:43 Pulse Oximetry 100 05/30/24 15:43 Vital signs reviewed MDM - URI/Sore Throat MDM Narrative Medical decision making narrative: At the time of visit patient is resting comfortably on the exam table. Patient appears to be nontoxic. Labs: COVID testing was negative in the clinic today. Plan: I suspect patient has URI. Supportive measures were discussed with the patient and they voiced understanding discharge instructions and agrees to tr eatment plan. Return precautions reviewed Differential Diagnosis Differential diagnosis: Likely upper respiratory infection, otitis media, sinusitis, viral infection, bronchitis, influenza, pharyngitis and other (COVID) Discharge Plan Discharge Clinical Impression: URI (upper respiratory infection) Qualifiers: URI type: unspecified URI Qualified Code(s): J06.9 - Acute upper respiratory infection, unspecified Patient Disposition: Home, Self-Care Condition: Stable Instructions: Antibiotic Form, Cold Symptoms (ED) Additional Instructions: COVID testing was negative in the clinic today. Increase fluids and stay well hydrated Tylenol/motrin for pain/fever Flonase and OTC antihistamines as directed Vicks vapor rub to open sinuses Sinus rinses for congestion Cepacol spray, cough drops, throat lozenges, warm tea with honey/lemon, gargle salt water to soothe throat BRAT diet for diarrhea Clear liquids x 24 hours then advance as tolerated for nausea/vomiting Go to the ED if you develop a worsening in your condition- high fever not controlled by Tylenol or Motrin, dehydration, weakness, lethargy, shortness of breath, or chest pain. Follow up with your PCP in 3-5 days if symptoms persist. Patient Language: [place]an Prescriptions: No Action cholecalciferol (vitamin D3) [Vitamin D3] 25 mcg (1,000 unit) tablet,chewable 2,000 unit PO ONCE fluticasone propion-salmeterol [Wixela Inhub] 250-50 mcg/dose blister with device 1 inh inhalation BID 30 Days Qty: 60 11RF Rx Instructions: rinse and spit albuterol sulfate 90 mcg/actuation HFA aerosol inhaler 1 - 2 inh inhalation Q4-6H PRN (Reason: shortness of breath or wheezing) Qty: 8.5 2RF (DME) peak flow meter Device See Rx Instructions .ROUTE .MEDSUPPLY Qty: 1 0RF Rx Instructions: As directed azelastine 137 mcg (0.1 %) spray,non-aerosol 1 spray intranasal Q12H PRN (Reason: nasal congestion and drainage) Qty: 30 2RF Rx Instructions: administer into each nostril aspirin [Adult Aspirin Regimen] 81 mg tablet,delayed release (DR/EC) 81 mg PO DAILY calcium pantothenate 500 mg tablet PO Centrum Silver Women 8 mg iron-400 mcg-300 mcg tablet 1 tablet PO DAILY Gemtesa 75 mg tablet 75 mg PO DAILY (DME) lancets [OneTouch Delica Lancets] 33 gauge misc See Rx Instructions .ROUTE .MEDSUPPLY Qty: 100 3RF Rx Instructions: Use to check blood sugar daily while fasting (DME) blood-glucose meter [Accu-Chek Guide Glucose Meter] Misc See Rx Instructions .Route Qty: 1 0RF Rx Instructions: As directed daily (DME) insulin syringe-needle U-100 0.3 mL 30 gauge x 5/16 syringe See Rx Instructions .ROUTE .MEDSUPPLY Qty: 100 3RF Rx Instructions: Daily as directed (DME) Accu-Chek Guide test strips Strip See Rx Instructions .Route Qty: 100 5RF Rx Instructions: use As directed to check glucose TID fluticasone propionate 50 mcg/actuation spray,suspension 1 spray intranasal Q12H Qty: 16 0RF Rx Instructions: administer into each nostril (DME) insulin syr/ndl U100 half yadira 0.3 mL 31 gauge x 5/16 syringe See Rx Instructions .Route Qty: 200 3RF Rx Instructions: As directed bid pantoprazole 40 mg tablet,delayed release (DR/EC) 40 mg PO QAM Qty: 90 3RF meclizine 25 mg tablet 25 mg PO TID PRN (Reason: dizziness or vertigo) Qty: 30 0RF ipratropium-albuterol 0.5 mg-3 mg(2.5 mg base)/3 mL solution for nebulization 3 ml inhalation Q6H PRN (Reason: shortness of breath or wheezing) Qty: 180 2RF Novolin 70/30 U-100 Insulin 100 unit/mL (70-30) suspension 30 unit subcut BID Qty: 20 12RF Rx Instructions: Take before breakfast and supper. Uses Reli-on brand. losartan 100 mg tablet 100 mg PO DAILY Qty: 90 3RF hydrochlorothiazide 12.5 mg tablet 25 mg PO DAILY Qty: 180 1RF montelukast 10 mg tablet See Rx Instructions .ROUTE .COMPLEX Qty: 90 1RF Dose Instruction: Take 1 tablet by mouth once daily Rx Instructions: Take 1 tablet by mouth once daily simvastatin 40 mg tablet 40 mg PO DAILY Qty: 90 1RF metformin 1,000 mg tablet 1,000 mg PO BID Qty: 180 3RF Rx Instructions: TAKE 1 TABLET BY MOUTH TWICE DAILY WITH BREAKFAST AND WITH EVENING MEAL metoprolol succinate 25 mg tablet extended release 24 hr 25 mg PO DAILY Qty: 30 6RF levothyroxine 125 mcg tablet 125 mcg PO DAILY Qty: 90 1RF Follow-up/Referrals: Emy Jones MD [Primary Care Provider] - Time of Disposition: 15:56 Quality NIHSS Nursing Documentation ED NIHSS nursing documentation: reviewed/agree
[2024-05-30 15:43] VITALS: BP 142/81; PULSE 87; RESP 16; TEMP 35.8; O2SAT 100
[2024-05-30 16:06] LABS: EDCOVIDSCREEN Negative (Negative)
== END 2024-05-30 16:00 | disposition home or self-care (01) ==
PROVIDERS: Emergency Provider Nurse Practitioner Family; PCP Family Medicine
DX: J06.9 Acute upper respiratory infection, unspecified (principal); Z20.822 Contact with and (suspected) exposure to COVID-19; J44.9 Chronic obstructive pulmonary disease, unspecified; I10 Essential (primary) hypertension; E11.9 Type 2 diabetes mellitus without complications; M81.0 Age-related osteoporosis without current pathological fracture; M19.90 Unspecified osteoarthritis, unspecified site; M17.12 Unilateral primary osteoarthritis, left knee; Z85.3 Personal history of malignant neoplasm of breast; Z90.11 Acquired absence of right breast and nipple; Z79.82 Long term (current) use of aspirin
CPT/HCPCS: 87426; 99212; G0463

== ENCOUNTER 2024-07-14 10:38 | Emergency (ER) | payer MEDICARE, SELFPAY ==
[2024-07-14 11:00] VITALS: BP 158/65; PULSE 70; RESP 18; TEMP 37; O2SAT 100
--- NOTE | 2024-07-14 11:12 | ED_ITS ---
HPI - Skin/Abscess/Foreign Bdy General Chief complaint: Skin/Abscess/Foreign Body Stated complaint: headache, shingles Source: patient Mode of arrival: ambulatory Limitations: no limitations History of Present Illness HPI narrative: 79-year-old female with history of diabetes presented for complaint of painful red rash to the left forehead, left eye pain and swelling, and headache. Onset yesterday. Endorses blurred vision in the left eye for couple of days, she contacted her eye doctor and is scheduled for an appointment in 4 days. Denies photophobia, dizziness, nausea, vomiting, fevers or lethargy. Taking Tylenol. Related Data Home Medications ?Medication ?Instructions ?Recorded ?Confirmed ?Last Taken ?Type aspirin 81 mg tablet,delayed 81 mg PO DAILY 05/14/20 07/10/24 Unknown History release (Adult Aspirin Regimen) calcium pantothenate 500 mg tablet mg PO 05/14/20 07/10/24 Unknown History qvlgehhh-lsgg-ucya 8 mg-folic 400 1 tablet PO DAILY 05/14/20 07/10/24 Unknown History mcg-K 50 mcg-lutein 300 mcg tablet (Centrum Silver Women) vibegron 75 mg tablet (Gemtesa) 75 mg PO DAILY 07/20/23 07/10/24 Unknown History cholecalciferol (vitamin D3) 25 2,000 unit PO ONCE 05/23/24 07/10/24 Unknown History mcg (1,000 unit) chewable tablet (Vitamin D3) Allergies Allergy/AdvReac Type Severity Reaction Status Date / Time No Known Allergies Allergy Unknown Verified 07/14/24 11:06 Review of Systems Review of Systems: CONSTITUTIONAL: Denies body aches, fever, chills, or sweats. EYES: reports left eye pain, eyelid swelling Denies redness, or discharge. ENT: Denies rhinorrhea, congestion CARDIOVASCULAR: Denies chest pain, palpitations, or edema. RESPIRATORY: Denies cough or dyspnea. GASTROINTESTINAL: Denies abdominal pain, nausea, vomiting, or diarrhea. SKIN: reports red painful rash to forehead/scalp MUSCULOSKELETAL: Denies back pain, joint pain, or myalgia. NEUROLOGIC: Denies headache, numbness, tingling, or weakness. [facility] Past Medical History Medical History Patellofemoral arthritis Left knee DJD Chest pain Colon cancer screening Cologuard negative, Fall 2020, done with TERMITE EXTERMINATOR (Leta) COPD exacerbation Class 2 obesity with body mass index (BMI) of 38.0 to 38.9 in adult Chondromalacia of right patellofemoral joint Arthritis Osteoporosis Urinary frequency Wears glasses Vertigo Obstructive sleep apnea Essential (primary) hypertension Type 2 diabetes mellitus History of breast cancer Diabetes Breast cancer History of vaginal delivery x 2 Asthma COPD (chronic obstructive pulmonary disease) Benign hypertension Dysuria (08/28/18) Surgical History Surgical History History of hip surgery L hip surgery History of lung surgery 2014-Dicortication Dr. 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 POA: Brother, Hong. Has living will. Smoking status: Never smoker Second hand tobacco smoke exposure: No Alcohol intake: current Drinks per week: 1 Alcohol use details: wine Substance use: never Substance use type: does not use Lack of Transportation: No Lack of Food: Never True Current Housing: I Have Housing Concerned About Future Housing: No Difficulty Paying Gas/Electric Bills: No Difficulty Paying for Meds: No Currently Unemployed: No Education: Associate Degree Difficulty w/ Childcare or Family Care: No Living arrangements: with family Gender identity (if verbalized by the patient): Female Sexual Orientation (if Verbalized by the Patient): Straight or Heterosexual Spiritual care concerns: No Agree to blood products: Yes Comments At time of signature, I have reviewed and agree with nursing past medical, surgical, social and family history unless otherwise noted. Please see nursing chart for further information. There is no relevant family history pertinent to the presenting complaint Exam Narrative: GENERAL: Well-appearing HEAD: Normocephalic, atraumatic. EYES: Left upper eyelid with swelling and erythema. Not occluded. No drainage. bilateral conjunctivae clear. PERRLA, EOMI. ENT: Mucous membranes moist. Oropharynx without edema, erythema or lesions. NECK: Supple. No lymphadenopathy CHEST: Clear to auscultation. HEART: Regular rate and rhythm. SKIN: Warm, dry. Vesicles on erythematous base noted to left forehead, roman catholic and scalp area c/w zoster NEURO: Alert and oriented x3. Course Course Emergency Course: Patient is aware of diagnosis, understands and agrees to treatment plan. Anticipatory guidance given. Patient agrees to follow-up as directed and is aware of reasons to seek care at the emergency department. Portions of this record may have been created with voice recognition software Level of Care: Express Care Visit Vital Signs Vital signs: Vital Signs Temperature 98.6 F 07/14/24 11:00 Pulse Rate 70 07/14/24 11:00 Respiratory Rate 18 07/14/24 11:00 Blood Pressure 158/65 H 07/14/24 11:00 Pulse Oximetry 100 07/14/24 11:00 Oxygen Delivery Room Air 07/14/24 11:00 Temperature 98.6 F 07/14/24 11:00 Pulse Rate 70 07/14/24 11:00 Respiratory Rate 18 07/14/24 11:00 Blood Pressure 158/65 H 07/14/24 11:00 Pulse Oximetry 100 07/14/24 11:00 Oxygen Delivery Room Air 07/14/24 11:00 Reviewed MDM - Skin/Abscess/Foreign Bdy MDM Narrative Medical decision making narrative: Discussed physical exam findings consistent with Herpes zoster ophthalmicus, discussed at length risks associated with this condition. rx valacyclovir. She says she has an eye doctor she is scheduled to see in 4 days, however she will call them in 2 days to see if she can get in sooner.. Advised supportive measures and signs/symptoms to go to the ER. Pt is appropriate for outpt treatment and f/u. Differential Diagnosis Differential diagnosis: Likely abscess of skin or subcutaneous tissue, urticaria, herpes zoster, cellulitis and contact dermatitis Discharge Plan Discharge Clinical Impression: Herpes zoster ophthalmicus of left eye Patient Disposition: Home, Self-Care Condition: Stable Instructions: Shingles (ED) Additional Instructions: Take medication as directed Keep the lesions covered until they are fully crusted over - you are contagious until they are dried. Avoid contact with women or people who have not had chickenpox vaccination. Tylenol 1000mg every 8 hours as needed Follow up with your primary care provider next week, call Tuesday. Go to the ER immediately for worsening symptoms or concerns. You must follow up with your eye doctor Tuesday if they do not see patients toda y. Risks include: inflammation of the cornea, Glaucoma, Permanent vision loss, and Post-herpetic neuralgia (persistent pain after the rash has cleared) [facility] [phone] [facility] [phone] [facility] [phone] [facility] [phone] Patient Language: Tanzanian Prescriptions: New valacyclovir [Valtrex] 1 gram tablet 1,000 mg PO Q8H 7 Days Qty: 21 0RF No Action cholecalciferol (vitamin D3) [Vitamin D3] 25 mcg (1,000 unit) tablet,chewable 2,000 unit PO ONCE fluticasone propion-salmeterol [Wixela Inhub] 250-50 mcg/dose blister with device 1 inh inhalation BID 30 Days Qty: 60 11RF Rx Instructions: rinse and spit albuterol sulfate 90 mcg/actuation HFA aerosol inhaler 1 - 2 inh inhalation Q4-6H PRN (Reason: shortness of breath or wheezing) Qty: 8.5 2RF (DME) peak flow meter Device See Rx Instructions .ROUTE .MEDSUPPLY Qty: 1 0RF Rx Instructions: As directed azelastine 137 mcg (0.1 %) spray,non-aerosol 1 spray intranasal Q12H PRN (Reason: nasal congestion and drainage) Qty: 30 2RF Rx Instructions: administer into each nostril aspirin [Adult Aspirin Regimen] 81 mg tablet,delayed release (DR/EC) 81 mg PO DAILY calcium pantothenate 500 mg tablet PO Centrum Silver Women 8 mg iron-400 mcg-300 mcg tablet 1 tablet PO DAILY Gemtesa 75 mg tablet 75 mg PO DAILY (DME) lancets [OneTouch Delica Lancets] 33 gauge misc See Rx Instructions .ROUTE .MEDSUPPLY Qty: 100 3RF Rx Instructions: Use to check blood sugar daily while fasting (DME) blood-glucose meter [Accu-Chek Guide Glucose Meter] Misc See Rx Instructions .Route Qty: 1 0RF Rx Instructions: As directed daily (DME) insulin syringe-needle U-100 0.3 mL 30 gauge x 5/16 syringe See Rx Instructions .ROUTE .MEDSUPPLY Qty: 100 3RF Rx Instructions: Daily as directed (DME) Accu-Chek Guide test strips Strip See Rx Instructions .Route Qty: 100 5RF Rx Instructions: use As directed to check glucose TID fluticasone propionate 50 mcg/actuation spray,suspension 1 spray intranasal Q12H Qty: 16 0RF Rx Instructions: administer into each nostril (DME) insulin syr/ndl U100 half yadira 0.3 mL 31 gauge x 5/16 syringe See Rx Instructions .Route Qty: 200 3RF Rx Instructions: As directed bid meclizine 25 mg tablet 25 mg PO TID PRN (Reason: dizziness or vertigo) Qty: 30 0RF ipratropium-albuterol 0.5 mg-3 mg(2.5 mg base)/3 mL solution for nebulization 3 ml inhalation Q6H PRN (Reason: shortness of breath or wheezing) Qty: 180 2RF Novolin 70/30 U-100 Insulin 100 unit/mL (70-30) suspension 30 unit subcut BID Qty: 20 12RF Rx Instructions: Take before breakfast and supper. Uses Reli-on brand. losartan 100 mg tablet 100 mg PO DAILY Qty: 90 3RF hydrochlorothiazide 12.5 mg tablet 25 mg PO DAILY Qty: 180 1RF montelukast 10 mg tablet See Rx Instructions .ROUTE .COMPLEX Qty: 90 1RF Dose Instruction: Take 1 tablet by mouth once daily Rx Instructions: Take 1 tablet by mouth once daily simvastatin 40 mg tablet 40 mg PO DAILY Qty: 90 1RF metformin 1,000 mg tablet 1,000 mg PO BID Qty: 180 3RF Rx Instructions: TAKE 1 TABLET BY MOUTH TWICE DAILY WITH BREAKFAST AND WITH EVENING MEAL metoprolol succinate 25 mg tablet extended release 24 hr 25 mg PO DAILY Qty: 30 6RF levothyroxine 125 mcg tablet 125 mcg PO DAILY Qty: 90 1RF pantoprazole 40 mg tablet,delayed release (DR/EC) 40 mg PO QAM Qty: 90 3RF Follow-up/Referrals: Emy Jones MD [Primary Care Provider] - Time of Disposition: 11:27
== END 2024-07-14 11:35 | disposition home or self-care (01) ==
PROVIDERS: Emergency Provider Nurse Practitioner Family; PCP Family Medicine
DX: B02.30 Zoster ocular disease, unspecified (principal); I10 Essential (primary) hypertension; E11.9 Type 2 diabetes mellitus without complications; Z79.4 Long term (current) use of insulin; Z79.84 Long term (current) use of oral hypoglycemic drugs; J44.9 Chronic obstructive pulmonary disease, unspecified; M17.12 Unilateral primary osteoarthritis, left knee; M81.0 Age-related osteoporosis without current pathological fracture; E66.9 Obesity, unspecified; Z68.41 Body mass index [BMI] 40.0-44.9, adult; Z85.3 Personal history of malignant neoplasm of breast; Z90.11 Acquired absence of right breast and nipple; Z79.82 Long term (current) use of aspirin
CPT/HCPCS: 99213; G0463

== ENCOUNTER 2024-08-14 11:22 | Outpatient (CLI) | payer MEDICARE, SELFPAY ==
--- NOTE | ~2024-08-14 | XR_ITS ---
Thoracic spine: Clinical Indication: Pain AP and lateral views were performed. Mild T12 compression fracture present. There is normal alignment of the vertebrae. There is moderate to advanced degenerative disc narrowing throughout the thoracic spine. Paravertebral soft tissues ap pear normal. Impression: Mild T12 compression fracture. 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 Reviewed, dictated and finalized at location . Impression: Mild T12 compression fracture. 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
--- OUTSIDE RECORDS SUMMARY | 2024-08-14 12:39 | XMS_ITS | Clinical Summary ---
Author Organization [facility] Address [address] [place] [address] Care Team Providers Care Barrel Liner Name Role Phone Faraz Joe MD Primary Care Provider [phone] Source Comments [facility],non-owned Affiliates and Associated Physician Practices is amultiple site organization consisting of ambulatory clinics and hospital sitesin [place], [place], [place] and [place]. This disclosure is being madepursuant to the Care Everywhere program and may not contain all information available regarding this patient. 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 Gender Identity Not on file Sexual Orientation Not on file Plan of Treatment Health Maintenance Due Date Last Done Comments BONE DENSITY TESTING 1945 DTAP/TDAP/TD VACCINES (1 - Tdap) 02/25/1963 PNEUMOCOCCAL VACCINE 50+ (1 of 1 - PCV) 02/25/1994 ZOSTER VACCINE (1 of 2) 02/25/1994 Respiratory Syncytial Virus (RSV) Vaccine Pt: or over 60 yrs (1 - 1-dose 75+ series) 02/25/2019 COVID-19 VACCINE ( - 2023-2 5 season) 2024 DEPRESSION SCREENING 05/02/2024 INFLUENZA VACCINE (Season Ended) 2024 HEPATITIS B VACCINE Aged Out No longe r eligible based on patient's age to complete this topic HIB VACCINE Aged Out No longer eligi ble based on patient's age to complete this topic HPV VACCINE Aged Out No longer eligi ble based on patient's age to complete this topic MENINGOCOCCAL (Group B) VACC INE SHARED DECISION-MAKING Aged Out No longer eligibl e based on patient's age to complete this topic MENINGOCOCCAL GROUPS A/C/Y/W VACCINE Aged Out No longer eligible b ased on patient's age to complete this topic Care Teams Barrel Liner Relationship Specialty Start Date End Date Faraz Joe MD [address] [place] [address] PCP - General 09/19/12
--- OUTSIDE RECORDS SUMMARY | 2024-08-14 12:39 | XMS_ITS | Clinical Summary ---
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 Gender Identity Not on file Sexual Orientation Not on file Plan of Treatment Health Maintenance Due Date Last Done Comments DTaP, Tdap and Td Vaccines ( 1 - Tdap) 02/25/1963 Annual Medicare Wellness Visit 02/25/2009 Dexa Scan (General) 02/25/2009 RSV Immunization or 60+ Years (1 - 1-dose 75+ series) 02/25/2019 COVID-19 Vaccine (2023-2 5 season) 2024 03/06/2021, 07/18/2020, 06/20/2020 Pneumococcal Vaccine: 50+ Years Completed 11/21/2016, 04/17/2015, 05/02/2012 Zoster Vaccines Completed 01/23/2020, 01/30/2019 Meningococcal B Vaccine Aged Out No l onger eligible based on patient's age to complete this topic Meningococcal Vaccine Aged Out No melinda pastor eligible based on patient's age to complete this topic RSV Immunizations Under 20 Months Aged Out No longer eligible b ased on patient's age to complete this topic Insurance MEDICARE AARP Care Teams Oil Well Driller Relationship Specialty Start Date End Date Emy Jones MD [address] [place] [address] PCP - General FAMILY PRACTICE 12/18/21
== END 2024-08-14 11:23 | disposition home or self-care (01) ==
PROVIDERS: PCP Family Medicine; Visit Provider Student in an Organized Health Care Education/Training Program
DX: S22.080A Wedge compression fracture of T11-T12 vertebra, initial encounter for closed fracture (principal); X58.XXXA Exposure to other specified factors, initial encounter; M51.34 Other intervertebral disc degeneration, thoracic region
CPT/HCPCS: 72070

== ENCOUNTER 2025-01-11 10:51 | Outpatient (CLI) | payer MEDICARE, SELFPAY ==
--- OUTSIDE RECORDS SUMMARY | 2025-01-11 11:50 | XMS_ITS | Encounter Summary ---
Author Organization [facility] Address [address] [place] [address] Phone Care Team Providers Care Substation Operator Helper Name Role Phone Faraz Joe MD Primary Care Provider [phone] Nika Navarrete DO Unavailable Mic Ghosh MD Unavailable [phone] Reason for Visit * Reason Comments Medication Refill Encounter Details Date Type Department Care Team (Late st Contact Info) Description 10/07/2020 Refill [facility] [address] [address] [address] Mic Ghosh MD [address] [place] [phone] Medication Refill Social History Tobacco Use Types Packs/Day Years Used Date Smoking Tobacco: Never Smokeless Tobacco: Never Alcohol Use Standard Drinks/Week Comments Yes 0 (1 standard drink = 0.6 oz pur e alcohol) occasionally PHQ-2 Answer Date Recorded PHQ-2 Score 0 01/13/2019 Comments Unknown Sex and Gender Information Value Date Recorded Sex Assigned at Not on file Legal Sex Female 2:28 PM CDT Gender Identity Not on file Sexual Orientation Not on file documented as of this encounter Miscellaneous Notes * Telephone Encounter - Mervat Tiwari RMA - 10/07/2020 8:55 AM CDT Pharmacy refill request. Please refill if appropriate. Thanks! 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
--- OUTSIDE RECORDS SUMMARY | 2025-01-11 11:50 | XMS_ITS | Clinical Summary ---
Author Organization [facility] Address [address] [place] [address] Care Team Providers Care Supervisor Paste Mixing Name Role Phone Faraz Joe MD Primary Care Provider [phone] Source Comments [facility],non-owned Affiliates and Associated Physician Practices is amultiple site organization consisting of ambulatory clinics and hospital sitesin [place], [place], [place] and [place]. This disclosure is being madepursuant to the Care Everywhere program and may not contain all information available regarding this patient. 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 Gender Identity Not on file Sexual Orientation Not on file Plan of Treatment Health Maintenance Due Date Last Done Comments BONE DENSITY TESTING 1944 DTAP/TDAP/TD VACCINES (1 - Tdap) 02/25/1963 PNEUMOCOCCAL VACCINE 50+ (1 of 1 - PCV) 02/25/1994 ZOSTER VACCINE (1 of 2) 02/25/1994 Respiratory Syncytial Virus (RSV) Vaccine Pt: or over 60 yrs (1 - 1-dose 75+ series) 02/25/2019 DEPRESSION SCREENING 05/02/2024 COVID-19 VACCINE ( - 2023-2 5 season) 2024 INFLUENZA VACCINE (#1) 2024 HEPATITIS B VACCINE Aged Out No [...] age to complete this topic Care Teams Supervisor Paste Mixing Relationship Specialty Start Date End Date Faraz Joe MD [address] [place] [address] PCP - General 09/19/12
--- OUTSIDE RECORDS SUMMARY | 2025-01-11 11:50 | XMS_ITS | Clinical Summary ---
Author Organization [facility] Address [address] [facility] [address] [place] [address] Phone Care Team Providers Care Polisher Sand Name Role Phone Faraz Joe MD Primary Care Provider [phone] Mic Ghosh MD Unavailable [phone] Allergies No known active allergies Medications simvastatin (ZOCOR) 40 MG Tablet Take by mouth. Activ e montelukast (SINGULAIR) 10 MG Tablet Take by mouth. Activ e metFORMIN (GLUCOPHAGE) 1000 MG Tablet Take 1,000 mg by mouth 2 times daily. Active Cholecalcifero l (VITAMIN D) 2000 UNIT Tablet Take 1 Tab by mouth daily. Active pantoprazole (PROTONIX) 40 MG Tablet Delayed Response Take 40 mg by mouth daily. 9 Active Multiple Vitamin (Multivitamins ) Capsule Take 1 Capsule by mouth. Active fluticasone (FLONASE) 50 MCG/ACT Suspension 1 [place] by Nasal route. 9 Active fexofenadine (SAM) 180 MG Tablet Take 180 mg by mouth. Active aspirin EC (ECOTRIN) 325 MG Tablet Delayed Response Take 325 mg by mouth. 9 Active acetaminophen (TYLENOL) 325 MG Tablet Take 650 mg by mouth. 9 Active Calcium Carbonate (CALCIUM 600 PO) Take 600 mg by mouth. 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, estrogen receptor positive (HCC) Take 1 tablet by mouth once daily 90 Tablet 3 2 Active Active Problems Problem Noted Date Diagnosed Date Diabetes 04/03/2019 CANDE on CPAP 08/29/2018 Hypothyroidism 08/29/2018 Hypertension 08/29/2018 Hyperlipidemia 08/29/2018 GERD (gastroesophageal reflux disease) 9 Class 2 obesity with body ma ss index (BMI) of 38.0 to 38.9 in adult 08/29/2018 Asthma 08/29/2018 Rotator cuff arthropathy of left shoulder 2018 Overview (08/06/2020): Added automatically from request for surgery [id number] 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 16 Vitamin D insufficiency 08/28/2015 Disorder of lung 10/05/2012 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, estrogen receptor positive Immunizations Immunization Administration Dates Next Due Covid-19, Mrna, Lnp-s, PF, 1 00 mcg/0.5 mL Dose (Moderna) 07/18/2020,06/20/2020 Influenza Vaccine 01/21/2020 Influenza, Quadrivalent, Adjuvanted 01/21/2020 Influenza, high-dose, trivalent, PF 01/30/2019,0 01/22/2018 Pneumococcal Vaccine - 13 Valent 04/17/2015 Pneumococcal Vaccine Adult - 23 Valent 7,05/02/2012 Zoster Vaccine Recombinant 01/23/2020,01/30/2019 Family History Medical History Relation Name Comments Stroke Father Diabetes Mother Heart Disease Other Hypertension Other Stroke Other Breast Cancer Paternal Aunt Diabetes Sister Relation Name Status Comments Brother Alive Father Mother Other Paternal Aunt Sister Alive Social History Tobacco Use Types Packs/Day Years Used Date Smoking Tobacco: Never Smokeless Tobacco: Never Tobacco Cessation:Counseling Given: No Alcohol Use Standard Drinks/Week Comments Yes 0 (1 standard drink = 0.6 oz pur e alcohol) occasionally PHQ-2 Answer Date Recorded Total Score - Questions 1-9 0 11/30 Comments Unknown Sex and Gender Information Value Date Recorded Sex Assigned at Not on file Legal Sex Female 2:28 PM CDT Gender Identity Not on file Sexual Orientation Not on file Last Filed Vital Signs Vital Sign Reading Time Taken Comments Blood Pressure 126/84 01/14/2022 2:09 PM CDT Pulse 92 01/14/2022 2:09 PM CDT Temperature 36.2 C (97.2 F) 01/14/2022 2:09 PM CDT Respiratory Rate 18 05/28/2021 12:54 PM STUDIO ASSISTANT Oxygen Saturation 95% 01/14/2022 2:09 PM CDT Inhaled Oxygen Concentration - - Weight 96.2 kg (212 lb) 01/14/2022 2:09 PM CDT Height 162.6 cm (5' 4) 01/14/2022 2:09 PM CDT Body Mass Index 36.39 01/14/2022 2:09 PM CDT Plan of Treatment Health Maintenance Due Date Last Done Comments Diabetes: Eye Exam 1944 Diabetes: Foot Exam 1944 Diabetes: Hemoglobin A1c 1944 Hepatitis C Virus (HCV) Screening 1945 TdaP Immunization 1945 Respiratory Syncytial Virus (RSV) Immunization (Adult) (1 - 1-dose 75+ series) 02/25/2019 Diabetes: Nephropathy Screening 09/19/2020 09/20/2019, 05/23/2019, 10/17/2018 Mammogram 10/08/2022 10/08/2021, 04/2 05/2020, 11/05/2018 Influenza Immunization (#1) 12/31/202401/30, 01/21/2020, 01/21/2020, Additional history exists SARS-COV-2 Immunization ( season) 2024 03/06/2021, 07/18/2020, 06/20/2020 Pneumococcal Immunization (50+ years) Completed 11/21/2016, 04/17/2015, 05/02/2012 Pneumococcal Immunization Combined Discontinued 11/21/2016, 04/17/2015, 05/02/2012 DEXA Bone Density Discontinued 03/27/2018 Zoster Immunization Completed 01/23/2020, 9 Hepatitis B Immunization Aged Out No longer eligible based on patient's age to complete this topic Human Papillomavirus (HPV) Immunization Aged Out No longer eligible based on patient's age to complete this topic Meningococcal Immunization (ACWY) Aged Out No longer eligible based on patient's age to complete this topic Rotavirus Immunization Aged Out No lo nger eligible based on patient's age to complete this topic Procedures Procedure Name Priority Date/Time Associated Diagnosis Comments YE SCREENING BILATERAL DIGITAL W CAD W WAYNE Routine 10/08/2021 Encounter for screening mammogram for breast cancer CMP (COMPREHENSIVE METABOLIC PANEL) Routine 09/20/2019 YE BONE DENSITOMETRY AXIAL SKELETON Routine 03/27/2018 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, estrogen receptor positive (HCC) Vitamin D insufficiency Osteoporosis due to aromatase inhibitor from Last 3 Months or Most Recently Relevant to Health Maintenance Results * YE SCREENING BILATERAL DIGITAL W CAD W WAYNE (10/08/2021) Anatomical Region Laterality Modality breast Bilateral Mammography us Lelo Dwyer APRN, CNP IMG MAMMO ORDERAB LES Final Result * CMP (COMPREHENSIVE METABOLIC PANEL) (09/20/2019) Blood us Not On File Provider CHEMISTRY ORDERABLES Final Result * YE BONE DENSITOMETRY AXIAL SKELETON (03/27/2018) Anatomical Region Laterality Modality BODY N/A Other us Mic Ghosh MD IMG DEXA ORDERABLES Final R esult from Last 3 Months or Most Recently Relevant to Health Maintenance Insurance [facility] MEDICARE Advance Directives * No Code Status (Latest Code Status on File) Date Activated Date Inactivated Comments 09/23/2017 10:28 AM 06/30/2017 ACP ON FILE AT [facility] PER NURSE NAVIGATOR NOTE Care Teams Polisher Sand Relationship Specialty Start Date End Date Faraz Joe MD [address] [place] [address] PCP - General Family Medicine 03/06/15 Mic Ghosh MD [address] [place] [id number] Consulting Physician Oncology 06/30/17
[2025-01-11 12:09] LABS: Hematocrit 38.0 % (37.0-47.0); Hemoglobin 11.8 g/dL (12.0-15.0); Immature Granulocyte Percent A 0.5 % (0-0.5); Lymphocytes Absolute Auto 1.82 K/mm3 (0.9-3.2); Mean Corpuscular HGB Conc 31.1 g/dl (32-36); Mean Corpuscular Hemoglobin 27.0 pg (26-34); Mean Corpuscular Volume 87.0 fl (80-100); Nucleated Red Blood Cells Absolute Auto 0.000 K/mm3 (0.0-0.012); Nucleated Red Blood Cells Perc 0.0 % (0.0-0.2); Platelet Count Result 301 k/mm3 (150-375); Red Blood Count 4.37 M/mm3 (4.2-5.4); White Blood Count 5.8 K/mm3 (4.5-10.0)
[2025-01-11 12:32] LABS: Alanine Aminotransferase 16 U/L (6-35); Albumin Level 4.4 g/dL (3.5-5.1); Alkaline Phosphatase 61 U/L (38-126); Anion Gap 8 mmol/L (4-12); Aspartate Amino Transferase 26 U/L (14-36); Bilirubin,Total 1.4 mg/dL (0.2-1.3); Blood Urea Nitrogen 15 mg/dL (7-17); Calcium 9.2 mg/dL (8.4-10.2); Carbon Dioxide 28 mmol/L (22-30); Chloride 101 mmol/L (98-107); Cholesterol 166 mg/dL (0-200); Estimated Glomerular Filt Rate > 60; Glucose 153 mg/dL (65-110); HDL Direct 52 mg/dL; Potassium 4.6 mmol/L (3.4-5.0); Sodium 137 mmol/L (137-145); Total Protein 7.8 g/dL (6.3-8.2); Triglycerides 140 mg/dL (<150)
[2025-01-11 12:44] LABS: MALB Creatinine Ratio 25.4 mg/g (0-30)
[2025-01-11 12:47] LABS: Hemoglobin A1C 7.0 % (<5.7)
[2025-01-11 12:50] LABS: Free T4 Free Thyroxine 1.09 ng/dL (0.78-2.19)
[2025-01-11 13:04] LABS: Thyroid Stimulating Hormone 4.700 uIU/mL (0.465-4.680)
== END 2025-01-11 10:52 | disposition home or self-care (01) ==
PROVIDERS: PCP Family Medicine; Visit Provider Student in an Organized Health Care Education/Training Program
DX: E11.9 Type 2 diabetes mellitus without complications (principal); I10 Essential (primary) hypertension; E78.2 Mixed hyperlipidemia; E03.9 Hypothyroidism, unspecified; R53.83 Other fatigue; G47.33 Obstructive sleep apnea (adult) (pediatric); J44.9 Chronic obstructive pulmonary disease, unspecified
CPT/HCPCS: 36415; 80053; 80061; 82043; 83036; 84439; 84443; 85025